=== PATIENT | female | born 1980 | race Caucasian/White ===

== ENCOUNTER 2019-01-30 13:36 | Emergency (ER) | payer OTHER ==
[2019-01-30 14:34] LABS: BASOPHILS % (AUTO) 0.6 % (0.0-5.0); EOSINOPHILS % (AUTO) 1.8 % (0.0-8.0); HEMATOCRIT 42.4 % (36-48); LYMPHOCYTES % (AUTO) 24.1 % (21.0-51.0); MEAN CORPUSCULAR HEMOGLOBIN 30.7 pg (27.0-33.0); MEAN CORPUSCULAR HGB CONC 35.3 g/dL (32.0-36.0); MEAN CORPUSCULAR VOLUME 86.7 fL (79-99); MONOCYTES % (AUTO) 5.3 % (3.0-13.0); NEUTROPHILS % (AUTO) 68.2 % (40.0-77.0); NUCLEATED RED BLOOD CELLS 0.1 % (0.0-0.19); PLATELET COUNT (AUTO) 192 K/uL (130-400); RED BLOOD CELL COUNT(AUTO) 4.89 MIL/uL (4.00-5.50); WHITE BLOOD COUNT (AUTO) 8.2 K/uL (4.8-10.8)
[2019-01-30 14:46] LABS: CREATININE 0.6 mg/dL (0.5-1.5); POTASSIUM 3.7 mmol/L (3.5-5.1)
[2019-01-30 14:51] LABS: ALBUMIN 2.7 g/dL (3.5-5.0)
[2019-01-30] MEDS ORDERED: KETOROLAC TROMETHAMINE 30MG/ML ONE (15:22)
[2019-01-30] MEDS ORDERED: SODIUM CHLORIDE 0.9% 1000ML 1,000 ML IV ONE ×2 (15:22→16:34)
[2019-01-30] MEDS ORDERED: ONDANSETRON HCL 4 MG/2 ML VIAL ONE (15:22)
[2019-01-30 15:31] LABS: BILIRUBIN,URINE Negative (NEGATIVE); COLOR,URINE Yellow (YELLOW); GLUCOSE, URINE (UA) >=1000 mg/dL (NEGATIVE); KETONES,URINE >=160 mg/dL (NEGATIVE); LEUKOCYTE ESTERASE ,URINE Trace (NEGATIVE); NITRATE,URINE Negative (NEGATIVE); OCCULT BLOOD,URINE Small (NEGATIVE); PROTEIN,URINE Trace mg/dL (NEGATIVE)
[2019-01-30 15:33] LABS: HCG,QUAL RESULT NEGATIVE (NEGATIVE)
[2019-01-30 15:34] LABS: APPEARANCE,URINE SLIGHTLY CLOUDY (CLEAR)
[2019-01-30 15:39] LABS: ABG HCO3 20.7 mmol/L (21.0-28.0); ABG OXYGEN SATURATION 97.5 % (95.0-99.0); ABG PCO2 34 mmHg (32-45)
[2019-01-30 15:51] LABS: BACTERIA,URINE Few /HPF (None Seen); SQUAMOUS EPITHELIAL CELL,UR Moderate /HPF (0-2)
[2019-01-30] MEDS ORDERED: INSULIN HUMULIN R 100 UNIT/ML 3ML ONE (15:57)
[2019-01-30 16:39] LABS: CREATININE 0.5 mg/dL (0.5-1.5)
[2019-01-30] MEDS ORDERED: CEFTRIAXONE SODIUM 1 GM ONE (17:22)
[2019-01-30] MEDS ORDERED: SODIUM CHLORIDE 0.9% 100 ML IV ONE (17:22)
== END 2019-01-30 18:16 | disposition home or self-care (01) ==
LOC: EDH 13:36
DX: M54.5 Low back pain (principal); E11.65 Type 2 diabetes mellitus with hyperglycemia; E66.9 Obesity, unspecified; Z68.43 Body mass index [BMI] 50.0-59.9, adult; Z90.49 Acquired absence of other specified parts of digestive tract
CPT/HCPCS: 36415; 36600; 71045; 80053; 81001; 81025; 82550; 82803; 82948; 83690; 84484; 85025; 85378; 93005; 96361 ×2; 96374; 96375; 99285; J0696; J1815; J1885; J2405; J7030 ×2; 80048